=== PATIENT | male | born 1985 | race Caucasian/White ===

== ENCOUNTER 2018-06-15 16:06 | Emergency (ER) | payer MEDICAID, OTHER ==
[~2018-06-15] VITALS: Ht 180.3 cm; Wt 88.5 kg
[2018-06-15 16:26] VITALS: BP 144/95
== END 2018-06-15 18:00 | disposition home or self-care (01) ==
LOC: EDBD 16:06 → ER 16:06
DX: S91.312A Laceration without foreign body, left foot, initial encounter (principal); S63.91XA Sprain of unspecified part of right wrist and hand, initial encounter; S80.02XA Contusion of left knee, initial encounter; F17.210 Nicotine dependence, cigarettes, uncomplicated; V43.52XA Car driver injured in collision with other type car in traffic accident, initial encounter; Y93.I9 Activity, other involving external motion; Y92.488 Other paved roadways as the place of occurrence of the external cause; Y99.8 Other external cause status
CPT/HCPCS: 73130; 73630